=== PATIENT | male | born 1940 | race Caucasian/White ===

== ENCOUNTER → 2017-08-06 | Outpatient (CLI) | payer MEDICARE, OTHER ==
[2017-08-06 11:27] LABS: BUN 21 mg/dL (7-18); PROSTATE-SPECIFIC AG SCREEEN 0.6 ng/mL (0.0-4.0)
[2017-08-06 11:38] LABS: GFR (ESTIMATED) 54 ML/MIN (>60)
== END ==
LOC: LAB 09:22
PROVIDERS: Family Medicine
DX: E78.5 Hyperlipidemia, unspecified (principal); I25.10 Atherosclerotic heart disease of native coronary artery without angina pectoris; M10.9 Gout, unspecified; Z12.5 Encounter for screening for malignant neoplasm of prostate
CPT/HCPCS: G0103